=== PATIENT | female | born 2005 | race Caucasian/White ===

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

== ENCOUNTER 2025-05-14 15:42 | Emergency (ER) | payer OTHER ==
[~2025-05-14] VITALS: Wt 144.2 kg
[2025-05-14] MEDS ORDERED: Tdap Vaccine 0.5 ML SYR (Adult Vaccine) IM ONE (16:00)
[2025-05-14] MEDS ORDERED: SODIUM CHLORIDE 0.9% 1,000 ML IV ONE (16:00)
[2025-05-14] MEDS ORDERED: ceFAZolin sodium 2 GM in SYRINGE INFUSION 20 ML IV ONE (16:05)
[2025-05-14] MEDS ORDERED: ceFAZolin sodium/sodium chlor 20 ML IV ONE (16:10)
== END 2025-05-14 17:10 | disposition short-term general hospital (02) ==
LOC: ED 15:42
DX: S01.551A Open bite of lip, initial encounter (principal); F84.0 Autistic disorder; W54.0XXA Bitten by dog, initial encounter; Y93.89 Activity, other specified; Y92.89 Other specified places as the place of occurrence of the external cause; Y99.8 Other external cause status